=== PATIENT | male | born 1955 | race Caucasian/White ===

== ENCOUNTER 2018-05-08 20:44 | Inpatient (IN) ==
[2018-05-08] MEDS ORDERED: Naloxone 0.4 MG/ML INJ IVP PRN (22:59)
[2018-05-08] MEDS: 0.9 % Sodium Chloride 1,000 ML IVC SCH (23:44)
[2018-05-09 00:43] LABS: Hemoglobin 7.7 g/dL (12.9-16.9)
[2018-05-09 00:45] LABS: Hematocrit 23.2 % (37.5-50.1); Immature Platelets 4.2 % (1.1-6.1); Mean Corpuscular HGB Conc 33.2 g/dL (31.6-35.5); Mean Corpuscular Hemoglobin 32.1 pg (28.0-33.3); Mean Corpuscular Volume 96.7 fL (83.0-100.0); Mean Platelet Volume 11.2 fL (9.4-12.4); Nucleated Red Blood Cells 2.1 /100 WBC (0); Red Cell Distribution Width 15.3 % (11.5-14.5)
[2018-05-09 00:48] LABS: Platelet Count 22 K/mcL (140-400)
[2018-05-09 00:52] LABS: INR 1.7; Prothrombin Time 18.7 Seconds (9.4-12.1)
[2018-05-09 00:55] LABS: Activated Partial Thrombo Time 27.6 Seconds (26.0-36.0)
[2018-05-09 01:01] LABS: Lymphocytes # 0.8 K/mcL (0.6-4.6); Monocytes # 0.4 K/mcL (0.0-1.3); Neutrophils # 1.7 K/mcL (1.6-8.9)
[2018-05-09 01:02] LABS: Anisocytosis 1+ (Not Present); Platelet Estimate Marked Decrease (Normal); Polychromasia 1+ (Not Present); Reactive Lymphocytes Present (Not Present)
[2018-05-09 01:03] LABS: Albumin 2.8 g/dL (3.5-5.7); Albumin/Globulin Ratio 1.2 (1.1-2.2); Bilirubin,Total 2.6 mg/dL (0.3-1.0); Calcium 12.1 mg/dL (8.6-10.3); Globulin 2.4 g/dL (2.4-3.5); Magnesium 2.3 mg/dL (1.6-2.6); Phosphorous 3.7 mg/dL (2.7-4.5); Potassium 3.9 mEq/L (3.5-5.1); Total Protein 5.2 g/dL (6.4-8.9)
--- NOTE | 2018-05-09 02:40 | Internal Med History&Physical ---
Date of Encounter: 05/09/18 Time of Encounter: 02:36 Internal Medicine - H&P: HPI Chief complaint: Weakness History of present illness: Mr. Urena is a 62 year old male with a past medical history of nonischemic cardiomyopathy, COPD, hypertension and ICD who presented from [facility] due to generalized weakness, abdominal pain and 10 pound weight loss. Patient is somewhat of a poor historian due to some confusion however, states that a friend of his recommended that he come into the hospital and be evaluated. Patient states that he has had lower abdominal pain which she describes as a soreness as if he has done "1000 sit ups". Pain is aggravated with twisting and try to get out of bed. Alleviated with rest. Patient also endorses 30 pounds of unintentional weight loss over the past month. Per report from [facility], patient stated it was 10 pounds. When asked if he has been eating and drinking enough he stated, "obviously I have not been eating enough". Patient has a [id number] smoking history and states that he continues to smoke a pack a day. Denies any alcohol use. Adult Protective Services was contacted based on EMS report that patient did not have electricity, running water or a good heat source. During initial assessment at [facility], patient's vitals were stable. Initial laboratory workup was notable for a Leukocyte count was 5.3, hemoglobin of 9.9, platelets of 33, Creatinine of 2.28, Calcium of 13.9. Urine was unremarkable. CT of the chest abdomen and pelvis performed at [facility] demonstrated abnormal findings in the lungs concerning for lung adenocarcinoma with concern for metastatic disease with findings of retroperitoneal lymphadenopathy as well as a lesion involving the liver. Repeat labs here showed significant pancytopenia as well as abnormal LFTs which are also seen at [facility]. Past Med Surg Social Fam HX - Past Medical History Medical history: COPD, hypertension, other Psychiatric history: no psych history - Past Surgical History Surgical History: other, AICD, pacemaker Additional surgical history: partial vocal removal, nephrectomy - Social History Smoking Status: Current every day smoker Packs per day: 1 Smokeless Tobacco Status: No Alcohol use: none Drug use: marijuana - Family History Father Family Member Ethnicity: Non- Living Status: Age at : 46 Hx Family Cancer: Yes (harjit) Internal Medicine - H&P: Meds Aspirin Enteric Coated [Aspirin EC] 81 mg PO DAILY 02/28/17 [History] Atorvastatin [Lipitor] 40 mg PO HS 02/28/17 [History] Carvedilol 18.75 mg PO BID 02/28/17 [History] Cephalexin [Keflex] 500 mg PO TID #15 capsule 02/28/17 [Rx] Furosemide [Lasix] 40 mg PO DAILY 02/28/17 [History] HYDROcodone/Acet 7.5/325 mg [[place] 7.5-325 mg] 1 tab PO Q4-6H PRN #20 tablet 02/28/17 [Rx] Lisinopril [Zestril] 20 mg PO DAILY 02/28/17 [History] Allergy/AdvReac Type Severity Reaction Status Date / Time No Known Allergies Allergy Verified 02/28/17 09:30 All Systems PM: A 10-system review of systems was performed and is negative for pertinent find ings except as documented above in the HPI. - Constitutional Constitutional: no chills, no fever(s), no night sweats - EENT Eyes: no change in vision, no discharge, no pain, no photophobia Ears: no ear discharge, no ear pain, no tinnitus Nose, mouth and throat: no dysphagia, no nasal discharge, no neck pain, no sore throat - Cardiovascular Cardiovascular ROS IM: no chest pain, no diaphoresis, no dyspnea, no lightheadedness, no palpitations, no syncope - Respiratory Respiratory: no cough, no dyspnea, no wheezing, no excessive phlegm production - Gastrointestinal Gastrointestinal: no abdominal pain, no diarrhea, no hematemesis, no hematochezia, no melena, no nausea, no vomiting - Musculoskeletal Musculoskeletal ROS IM: no numbness, no tingling - Integumentary Integumentary IM: no rash, no unusual bruising - Neurological Neurological ROS: no confusion, no convulsions, no focal weakness, no numbness, no tingling, no tremor(s) - Hematologic/Lymphatic Hematologic/Lymphatic: no easy bruising - Constitutional Vitals: Temp Pulse Resp BP Pulse Ox 98.1 F 69 18 96/61 92 05/09/18 02:29 05/09/18 02:29 05/09/18 02:29 05/09/18 02:29 05/09/18 02:29 Exam: General: Alert and oriented 2; lying in bed in no acute distress; cachectic in appearance Skin:Normal color, no rash, no lesions. HEENT:EOM, pupils equal, round and reactive. Dry mucous membranes Cardiovascular:Normal S1 & S2, no rubs, murmurs or gallops. No JVD. Pulse regular. Lungs:Normal breath sounds, diminished at the left lower lung base Abdomen:Soft, non-tender, no rigidity. Extremities:No deformity, no edema or tenderness, no joint swelling or clubbing. Neurological:Normal cognition and motor skills. Pulses:Carotid and radial pulses normal +2. Rest of the physical exam is non contributory Internal Med - H&P Results - Labs CBC & Chem 7: 05/09/18 00:03 05/09/18 00:03 Labs: Short CBC 05/09/18 Range/Units 00:03 WBC 2.9 L (4.3-11.1) K/mcL Hgb 7.7 L (12.9-16.9) g/dL Hct 23.2 L (37.5-50.1) % Plt Count 22 L* (140-400) K/mcL Neutrophils # 1.7 (1.6-8.9) K/mcL BMP 05/09/18 00:03 Sodium 141 Potassium 3.9 Chloride 111 H Carbon Dioxide 23 BUN 89 H Creatinine 1.88 H Glucose 89 Calcium 12.1 H Liver Function 05/09/18 Range/Units 00:03 Total Bilirubin 2.6 H (0.3-1.0) mg/dL AST 164 H (13-39) Units/L ALT 35 (7-52) Units/L Alkaline Phosphatase 305 H (34-104) Units/L Albumin 2.8 L (3.5-5.7) g/dL - Assessment and plan (1) Altered mental status, unspecified Current Visit: Yes Status: Acute Assessment and plan: Patient appears mildly confused. Per nurse, removed his IV line and required transfer from his current room 21 that was closer to the nurse's station. When I assessed the patient he was alert oriented 2 and was unsure where he was. Though, patient was able to tell me later on that he was to be transferred to [place] for further evaluation. Patient has multiple metabolic derangements including hypercalcemia, uremia and abnormal LFTs which may all be contributing to patient's current mental status change. Additionally patient appears dehydrated. -We will continue fluid support -We will obtain ammonia level. -Further workup for possible likely his underlying malignancy with metastatic disease. Qualifiers: Coma depth: unspecified coma depth Qualified Code(s): R40.20 - Unspecified coma (2) Lung mass Current Visit: Yes Status: Acute Assessment and plan: CT scan of the chest without contrast obtained at [facility] shows a left hilar lobulated soft tissue density mass lesion most concerning for lung adenocarcinoma. 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 Adjacent mild layering post left side pleural effusion. Patient currently stable from a respiratory standpoint. -Oncology consult -Consider pulmonary consult (3) Abnormal LFTs Current Visit: Yes Status: Acute Assessment and plan: Patient presents with abnormal LFTs with a total bilirubin of 2.6, alkaline phosphatase of 305, AST of 164, ALT 35. Clinical evidence of jaundice with icteric sclera. CT of the abdomen without contrast shows cystic lesion involving the liver. A suspect metastatic lesion. Lipase level within normal limits. -We will obtain right upper quadrant ultrasound vs MRI of the liver -We will obtain GI consult. (4) Acute kidney injury Current Visit: Yes Status: Acute Assessment and plan: Patient presents with acute kidney injury with a creatinine of 1.88 down from 2.28 obtained at [facility]. Also found to have hypercalcemia with a corrected calcium of 13.1 which is likely further contributing to his dehydration. Appears to have responded to fluids. Patient clinically still appears dry. -Continue fluid support -Monitor kidney function (5) Pancytopenia Current Visit: Yes Status: Acute Assessment and plan: Patient found to be pancytopenic with a white blood cell count of 2.9, hemoglobin of 7.7 and platelet count of 22. Suspect secondary to metastatic disease. No clinical evidence of infection or bleeding at this time. -We will continue to monitor -Oncology consult (6) COPD (chronic obstructive pulmonary disease) Current Visit: Yes Status: Acute Assessment and plan: No evidence of an acute exacerbation. Maintaining good saturations on room air. Supportive care as needed. Qualifiers: Emphysema type: unspecified Qualified Code(s): J43.9 - Emphysema, unspecified (7) Nonischemic cardiomyopathy Current Visit: Yes Status: Acute Assessment and plan: History of nonischemic cardiomyopathy with previous ejection fraction of 30-35% based on records in 2010. No recent echo in our system. Currently does not appear to be volume overloaded. -We will continue with judicious fluid rehydration. (8) DVT prophylaxis Current Visit: Yes Status: Acute Assessment and plan: Subcutaneous heparin - Time Spent With Patient Total time spent is greater than 50% in coordination of care (as documented) at patient's floor/unit and/or counseling patient:
[2018-05-09 04:54] LABS: Hepatitis A Antibody IgM Nonreactive (Nonreactive); Hepatitis B Core IgM Nonreactive (Nonreactive); Hepatitis B Surface Antigen Nonreactive (Nonreactive); Hepatitis C Virus Antibody Nonreactive (Nonreactive)
[2018-05-09] MEDS ORDERED: *HR* Heparin 5,000 UNIT/ML VIAL SQ SCH (06:00)
[2018-05-09 09:10] LABS: Mean Corpuscular Volume 97.7 fL (83.0-100.0)
[2018-05-09 09:12] LABS: Hematocrit 21.5 % (37.5-50.1); Hemoglobin 7.1 g/dL (12.9-16.9); Immature Platelets 3.7 % (1.1-6.1); Mean Corpuscular Hemoglobin 32.3 pg (28.0-33.3); Mean Platelet Volume 11.3 fL (9.4-12.4); Nucleated Red Blood Cells 1.5 /100 WBC (0); Red Cell Distribution Width 15.4 % (11.5-14.5)
--- NOTE | 2018-05-09 09:13 | Gastroenterology Consult Note ---
Date of Encounter: 05/09/18 Time of Encounter: 10:00 - Assessment and plan (1) Abnormal LFTs Current Visit: Yes Status: Acute Assessment and plan: Abnormal LFTs, likely secondary to hepatic mass demonstrated on imaging from [facility]. MELD-Na 22 Patient presented with total bili 2.6, AST 164, LT 35, alkaline phosphatase 305, INR 1.7, Albumin 2.8, Ammonia 52 There does appear to be some level of jaundice on examination One concern for this patient is the possibility of hemolysis, considering elevated LDH Plan Check Peripheral smear for microangiopathic hemolysis, haptoglobin Check CEA, Ca 19-9, AFP Check Hep C RNA PCR for increased sensitivity Recommend biopsy for confirmed diagnosis, however will likely need correction of coagulopathy first. Source of biopsy depends on safest approach. Consider pulmonology consult. (2) Pancytopenia Current Visit: Yes Status: Acute Assessment and plan: Pancytopenia Hemoglobin 7.7, WBC 2.9, platelets 22 Suspect this is secondary to malignancy Hematology and oncology have been consulted (3) Liver mass Current Visit: Yes Status: Acute Assessment and plan: Likely metastatic from the lung (4) Lung mass Current Visit: Yes Status: Acute Assessment and plan: Demonstrated on imaging from [facility] Recommend pulmonology consult for consideration of bronchoscopy if appropriate - Time Spent With Patient Total time spent is greater than 50% in coordination of care (as documented) at patient's floor/unit and/or counseling patient: GI History of Present Illness - Data of Consult Patient: new to practice Consult date: 05/09/18 Requesting Physician: Shahab Esquivel MD - Consult Narrative Reason for consult: Liver lesion with elevated LFTs History of present illness: Mr. Urena is a 62 year old male with history of nonischemic cardiomyopathy, COPD, hypertension who presented from [facility] ED due to concerns for pain, significant weight loss that is unintentional, generalized weakness and overall malaise. The patient apparently has been experiencing worsening health overall for the past couple of months and says that he has been having significant back pain which multiple doctors have been taking a look at. In addition of this, he says that he has had significant shortness of breath, and sometimes abdominal pain as well although he notes for me that it is not that significant. He says that he has seen himself getting thinner and he is not sure why, although he does note that his appetite has been extremely poor. He does not know exactly why he is losing weight, although previous documentation does mention that, per his family, the patient has lost approximately 30 pounds in the past few months. In addition of this, the patient apparently did have significant abdominal pain at the time of arrival, with approximately 10/10 abdominal pain. It should be noted the patient this time is not complaining of any abdominal pain. One major concern for this patient was his state of living however, including the fact that he was apparently found at home with no running water, no electricity and no source of heat. It is unknown how long he was living this way, however, unkn own whether or not he was truly eating or drinking appropriately. At the [facility] ED the patient did have imaging of both his chest and abdomen which demonstrated a mass in the lung as well as retroperitoneal lymphadenopathy and a lesion in the liver all of which together is most concerning for metas tatic lung adenocarcinoma. Significantly, the patient does have a [id number] smoking history and continues to smoke heavily. In addition of these images, the patient was found have a pancytopenia with a WBC 2.9, hemoglobin 7.7, platelets 29. LFTs were found to be marginally elevated at AST 164, LT 35, alkaline phosphatase 305, however his hepatitis panel was largely unremarkable. He was transferred to [facility] for further workup and management, and GI was consulted for worsening LFTs in setting of liver lesion. Past Med Surg Social Fam HX - Past Medical History Medical history: COPD, hypertension, other Psychiatric history: no psych history - Past Surgical History Surgical History: other, AICD, pacemaker Additional surgical history: partial vocal removal, nephrectomy - Social History Smoking Status: Current every day smoker Packs per day: 1 Smokeless Tobacco Status: No Alcohol use: none Drug use: marijuana - Family History Father Family Member Ethnicity: Non- Living Status: Age at : 46 Hx Family Cancer: Yes (melonoma) Review of Systems: Constitutional: Denies fevers, chills. Admits to 30 pounds weight loss, generalized fatigue Head/Neck: Denies NICHOLS, neck stiffness EENT: Denies vision changes/blurriness, rhinorrhea, congestion, sore throat CVS: Denies chest pain, palpitations, orthopnea, edema, PND. Admits to dyspnea on exertion Pulm: Denies sputum, hemoptysis, wheezing. Admits to shortness of breath, cough GI: Denies vomiting, diarrhea, constipation, melena, hematemasis. Admits to occasional abdominal pain, nausea. Admits to poor appetite : Denies dysuria, increased frequency, urgency, hematuria Heme: Denies ease of bleeding or bruising MSK: Denies joint pain, limited ROM Skin: Denies rashes, ulcers, color changes Neuro: Denies NICHOLS, paresthesias, focal deficits, ataxia - Constitutional Vitals: Temp Pulse Resp BP Pulse Ox 98.8 F 83 16 97/61 93 05/09/18 06:55 05/09/18 06:55 05/09/18 06:55 05/09/18 06:55 05/09/18 06:55 Exam: Gen: Vitals noted. Cachectic appearing gentleman Eyes: Minimal scleral icterus, moist conjunctivae; no lid-lag; Pupils equal and reactive to light HENT: Atraumatic; oropharynx clear with moist mucous membranes and no mucosal ulcerations; normal hard and soft palate Neck: Trachea midline; supple, no thyromegaly or lymphadenopathy Cardiac: RRR, no murmur, +S1/S2 Pulmonary: Generally decreased lung mills throughout, however markedly diminished in the right lung mills Abdomen: soft, nontender, no guarding. No masses or hepatosplenomegaly MSK: ROM intact, no joint swelling noted Extremities: no BLE edema, nontender calf, no cyanosis or clubbing Skin: Normal temperature, turgor and texture; no rash, ulcers or subcutaneous nodules Neuro: moves all extremities, no focal deficits. Psych: Appropriate mood and behavior. A&Ox3 Results - Labs CBC & Chem 7: 05/09/18 08:42 05/09/18 08:42 Labs: Last Result Calcium 12.1 mg/dL (8.6-10.3) H 05/09/18 00:03 Entire Visit Hgb 7.7 g/dL (12.9-16.9) L 05/09/18 00:03 Hct 23.2 % (37.5-50.1) L 05/09/18 00:03 PT 18.7 Seconds (9.4-12.1) H 05/09/18 00:03 Total Bilirubin 2.6 mg/dL (0.3-1.0) H 05/09/18 00:03 AST 164 Units/L (13-39) H 05/09/18 00:03 ALT 35 Units/L (7-52) 05/09/18 00:03 Lipase 41 Units/L (11-82) 05/09/18 00:03 - ABG ABG results: PT/INR, D-dimer PT 18.7 Seconds (9.4-12.1) H 05/09/18 00:03 Consult Discharge Plan - Plan Referrals: Reddy Larson DO [Partnered Physician] - 05/18/18 12:00 pm
[2018-05-09 09:17] LABS: Platelet Count 25 K/mcL (140-400)
[2018-05-09 09:35] LABS: Eosinophils # 0.2 K/mcL (0.0-0.6); Lymphocytes # 1.2 K/mcL (0.6-4.6); Monocytes # 0.3 K/mcL (0.0-1.3); Neutrophils # 1.6 K/mcL (1.6-8.9); Platelet Estimate Marked Decrease (Normal)
[2018-05-09 09:36] LABS: Anisocytosis 1+ (Not Present); Polychromasia 1+ (Not Present)
--- NOTE | 2018-05-09 10:17 | Oncology Inp Consult Note ---
Addendum entered and electronically signed by Viet Martinez DO 05/11/18 08:37: I have seen and discussed the plan of care of this patient with attending physician. Original Note: <Viet Martinez - Last Filed: 05/09/18 14:23> Date of Encounter: 05/09/18 Time of Encounter: 10:11 Assessment and Plan (1) Lung mass Status: Acute Assessment and plan: 62M presented to [facility] emergency department with his family to 2 concerns for significant abdominal pain, unintentional weight loss, generalized weakness. CT of the chest, abdomen, pelvis was done at [facility] prior to transfer. 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 There was diffuse retroperitoneal lymphadenopathy, suggesting metastatic disease. There were also small hepatic simple cysts. Patient had elevated LFTs with unremarkable hepatitis serology. concern for metastatic lesions. Differentials include primary lung cancer with mets (suspect squamous cell carcinoma in setting of hypercalcemia) vs. unknown primary with metastasis to the lungs Plan: recommend pulmonology consult for bronchoscopy with biopsy of lung mass. transfuse platelets to increase >50 prior to procedure waiting on final radiology read reports from [facility] (2) Hypercalcemia Status: Acute Assessment and plan: Calcium 12.1 upon admission. Unclear etiology. Differentials include multiple myeloma vs. bony metastatic disease vs. hyperparathyroidism. Plan: one time dose pamidronate ordered-renally adjusted. PTHrP, 1,25 dihydroxy vitamin D, SPEP, UPEP, serum light chains pending continue aggressive fluid hydration-per primary team. (3) Pancytopenia Status: Acute Assessment and plan: infectious source vs. metastatic malignancy. Plan: continue to follow up on blood cultures - Data of Consult Patient: new to practice Consult date: 05/09/18 Requesting Physician: Shahab Esquivel MD Primary Care Provider: PCP NONE - Consult Narrative Reason for consult: concern for metastatic cancer History of present illness: Mr. Jones is a 62 M with past medical history of non-ischemic cardiomyopathy, COPD, hypertension, ICD placement, partial nephrectomy, partial lobectomy, 40 pack per year smoking history, and is still a current smoker. Patient arrived overnight as a transfer from [facility] to chief concern for metastatic lung adenocarcinoma. He initially arrived to [facility] ED via family members with chief complaint of generalized weakness, 10/10 abdominal pain, significant unintentional weight loss over the past month. Patient was altered upon admission, and remains altered. He is not a good historian and review of systems was unobtainable. Past Med Surg Social Fam HX - Past Medical History Medical history: COPD, hypertension, other Psychiatric history: no psych history - Past Surgical History Surgical History: other, AICD, pacemaker Additional surgical history: partial vocal removal, nephrectomy - Social History Smoking Status: Current every day smoker Packs per day: 1 Smokeless Tobacco Status: No Alcohol use: none Drug use: marijuana - Family History Father Family Member Ethnicity: Non- Living Status: Age at : 48 Hx Family Cancer: Yes (melonoma) Medications and Allergies Aspirin Enteric Coated [Aspirin EC] 81 mg PO DAILY 02/28/17 [History] Atorvastatin [Lipitor] 40 mg PO HS 02/28/17 [History] Carvedilol 18.75 mg PO BID 02/28/17 [History] RX: Furosemide [Lasix] 40 mg PO DAILY 02/28/17 [History] RX: Lisinopril [Zestril] 20 mg PO BID 02/28/17 [History] Naproxen 500 mg PO BID PRN 05/09/18 [History] Allergy/AdvReac Type Severity Reaction Status Date / Time No Known Allergies Allergy Verified 02/28/17 09:30 ROS unobtainable: due to mental status Oncology - Exam - Constitutional Exam: General: alert and oriented to place only. Appears agitated, trying to get out of bed. reluctant to answer questions and gets mad when asked simple questions. CV: RRR, no murmurs, rubs, gallops. No edema noted. Respiratory: decreased breath sounds present in all lung mills. Abdomen: soft, non distended, non tender. hypoactive bowel sounds present. Extremities: no cyanosis or edema noted. Consult Discharge Plan - Plan Referrals: Reddy Larson DO [Partnered Physician] - 05/18/18 12:00 pm Inpatient Charges Provider: Dr. Nicole Ricci <Savanah Ricci - Last Filed: 05/09/18 16:14> Date of Encounter: 05/09/18 - Data of Consult Requesting Physician: Shahab Esquivel MD Primary Care Provider: PCP NONE - Attending Attestation I examined this patient and my medical decision-making was reviewed with the resident physician, Juan Llanos. I agree with the documented findings, disposition and treatment plan as described except to the extent set forth below. Inpatient Charges Provider: Dr. Nicole Ricci Consult - Inpatient: [id number]
[2018-05-09 10:30] LABS: Albumin 2.9 g/dL (3.5-5.7); Bilirubin,Total 2.4 mg/dL (0.3-1.0); Calcium 12.2 mg/dL (8.6-10.3); Potassium 3.9 mEq/L (3.5-5.1)
[2018-05-09 10:57] LABS: Albumin/Globulin Ratio 1.3 (1.1-2.2); Globulin 2.2 g/dL (2.4-3.5); Total Protein 5.1 g/dL (6.4-8.9)
[2018-05-09] MEDS: 0.9 % Sodium Chloride 1,000 ML IVC SCH (12:33)
[2018-05-09] MEDS: Piperacillin/Tazobactam 3.375 GM in 0.9 % Sodium Chloride Mini Bag 100 ML IVPB SCH ×2 (13:53→21:07)
[2018-05-09] MEDS ORDERED: Pamidronate 30 MG in 0.9 % Sodium Chloride 500 ML IVPB ONE (14:16)
[2018-05-09] MEDS ORDERED: 0.9 % Sodium Chloride 500 ML IVC ONE (14:45)
--- NOTE | 2018-05-09 15:06 | Internal Med Progress Note ---
Hospitalist Progress Note - Encounter Date of Encounter: 05/09/18 Time of Encounter: 11:40 - Subjective Interval History: H&P reviewed. Patient with history of nonischemic cardiomyopathy status post ICD insertion, COPD, hypertension, tobacco abuse, is admitted for the newly found lung/liver mass, bandemia, acute on chronic kidney failure, transaminitis, and hypercalcemia. Currently alert and oriented x 3 and states that he does want everything done at this point despite educating him on the numerous diagnoses. Continues to complain of mild SOB and generalized weakness. Abdominal pain appears somewhat better. - Exam Vitals: Temp Pulse Resp BP Pulse Ox 97.7 F 76 76 83/50 95 05/09/18 13:29 05/09/18 13:29 05/09/18 13:29 05/09/18 13:29 05/09/18 13:29 Exam: General: Alert and oriented, mild distress. HEENT:EOM, pupils equal, round and reactive. Cardiovascular:Normal S1 & S2, No JVD. Pulse regular. Lungs: Scattered rhonchi worse on the left. No rales/wheezes Abdomen:Soft, non-tender, not distended. No rebound/guarding/rigidity Extremities:No deformity or swelling Neurological: Normal cognition and motor skills. Non-focal. No asterixis - Assessment and Plan (1) Sepsis Current Visit: Yes Status: Acute Assessment and Plan: Presented with leukopenia, bandemia, and hypotension Reviewed CT T/A/P done at [facility] with radiologist at [facility], lung findings can be compatible with post-obstructive or aspiration pneumonia. No discernible amount of ascites or intra-abdominal source of infection start on zosyn PRN fluid boluses, continue mIVF blood cultures ordered sputum cultures, strep/legionella ag (2) Lung mass Current Visit: Yes Status: Acute Assessment and Plan: suspect primary lung CA with liver mets, complicated by post-obstructive PNA abx as above Oncology consult will likely need pulm consult with possible bronch but pt is currently critically ill. Will treat sepsis as above and monitor his progress (3) Hypercalcemia Current Visit: Yes Status: Acute Assessment and Plan: likely due to malignancy, it did improve from 13.9 at [facility] to 12.3 with IVF appreciate oncology input, for 1 dose of pamidronate continue IVF (4) Pancytopenia Current Visit: Yes Status: Acute Assessment and Plan: multifactorial, diffuse liver disease, sepsis, CKD Hb 7.7 -> 7.1, will transfuse 1U pRBC, repeat H&H after, check FOBT Plt 22 -> 25, d/c SQ heparin follow with hematology (5) Pneumonia Current Visit: Yes Status: Acute Assessment and Plan: as above (6) Acute on chronic kidney failure Current Visit: Yes Status: Acute Assessment and Plan: baseline Cr appears to be around 1.2, likely contributed by ATN from sepsis but hepatorenal syndrome is a possibility IVF as above US retroperitoneum will consider nephro consult tomorrow if Cr not improving (7) Abnormal LFTs Current Visit: Yes Status: Acute Assessment and Plan: likely due to liver lesions seen on CT A/P, suspect mets No discernible amount of ascites for paracentesis per discussion with radiologist at [facility] hep panel -ve, denies chronic EtOH use follow with GI (8) Nonischemic cardiomyopathy Current Visit: Yes Status: Acute Assessment and Plan: History of nonischemic cardiomyopathy, no echo in our system. will repeat Echo (9) COPD (chronic obstructive pulmonary disease) Current Visit: Yes Status: Acute Assessment and Plan: No evidence of an acute exacerbation. Maintaining good saturations on room air. Supportive care as needed. (10) DVT prophylaxis Current Visit: Yes Status: Acute Assessment and Plan: EPCD - Time Spent with Patient Total time spent is greater than 50% in coordination of care (as documented) at patient's floor/unit and/or counseling patient: Plan of Care Discussed with: nurse (discused with oncology as well) Internal Medicine: Result - Labs CBC & Chem 7: 05/09/18 08:42 05/09/18 08:42 Labs: Short CBC 05/09/18 05/09/18 Range/Units 00:03 08:42 WBC 2.9 L 3.4 L (4.3-11.1) K/mcL Hgb 7.7 L 7.1 L (12.9-16.9) g/dL Hct 23.2 L 21.5 L (37.5-50.1) % Plt Count 22 L* 25 L* (140-400) K/mcL Neutrophils # 1.7 1.6 (1.6-8.9) K/mcL BMP 05/09/18 05/09/18 00:03 08:42 Sodium 141 141 Potassium 3.9 3.9 Chloride 111 H 112 H Carbon Dioxide 23 23 BUN 89 H 94 H Creatinine 1.88 H 2.01 H Glucose 89 124 H Calcium 12.1 H 12.2 H Liver Function 05/09/18 05/09/18 Range/Units 00:03 08:42 Total Bilirubin 2.6 H 2.4 H (0.3-1.0) mg/dL AST 164 H 177 H (13-39) Units/L ALT 35 36 (7-52) Units/L Alkaline Phosphatase 305 H 340 H (34-104) Units/L Albumin 2.8 L 2.9 L (3.5-5.7) g/dL - ABG Interpretation ABG results: PT/INR, D-dimer PT 18.7 Seconds (9.4-12.1) H 05/09/18 00:03 Consult Discharge Plan - Plan Referrals: Reddy Larson DO [Partnered Physician] - 05/18/18 12:00 pm (1) Sepsis Qualifiers: Sepsis type: sepsis due to unspecified organism Qualified Code(s): A41.9 - Sepsis, unspecified organism (5) Pneumonia Qualifiers: Pneumonia type: due to unspecified organism Laterality: left Lung location: lower lobe of lung Qualified Code(s): J18.1 - Lobar pneumonia, unspecified organism (6) Acute on chronic kidney failure Qualifiers: Acute renal failure type: unspecified Chronic kidney disease stage: stage 3 (moderate) Qualified Code(s): N17.9 - Acute kidney failure, unspecified; N18.3 - Chronic kidney disease, stage 3 (moderate) (9) COPD (chronic obstructive pulmonary disease) Qualifiers: Emphysema type: unspecified Qualified Code(s): J43.9 - Emphysema, unspecified
[2018-05-09] MEDS: Ringers Solution, Lactated 1,000 ML IVC SCH (18:22)
[2018-05-09 21:57] LABS: Hematocrit 19.4 % (37.5-50.1); Hemoglobin 6.4 g/dL (12.9-16.9)
[2018-05-10] MEDS: Ringers Solution, Lactated 1,000 ML IVC SCH (04:11)
[2018-05-10] MEDS: Piperacillin/Tazobactam 3.375 GM in 0.9 % Sodium Chloride Mini Bag 100 ML IVPB SCH (05:03)
[2018-05-10] MEDS ORDERED: Aspirin Enteric Coated 81 MG Tablet PO SCH (09:00)
[2018-05-10 09:34] LABS: Hematocrit 21.3 % (37.5-50.1); Hemoglobin 6.6 g/dL (12.9-16.9)
[2018-05-10 09:47] LABS: Albumin 2.7 g/dL (3.5-5.7); Albumin/Globulin Ratio 1.2 (1.1-2.2); Globulin 2.3 g/dL (2.4-3.5)
--- NOTE | 2018-05-10 09:48 | Oncology Inp Progress Note ---
<Viet Martinez - Last Filed: 05/10/18 10:06> Date of Encounter: 05/10/18 Time of Encounter: 09:48 (1) Lung mass Current Visit: Yes Status: Acute Assessment and plan: 62M presented to [facility] emergency department with his family to 2 concerns for significant abdominal pain, unintentional weight loss, generalized weakness. CT of the chest, abdomen, pelvis was done at [facility] prior to transfer. 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 There was diffuse retroperitoneal lymphadenopathy, suggesting metastatic disease. There were also small hepatic simple cysts. Patient had elevated LFTs with unremarkable hepatitis serology. concern for metastatic lesions. Differentials include primary lung cancer with mets (suspect squamous cell carcinoma in setting of hypercalcemia) vs. unknown primary with metastasis to the lungs Plan: recommend pulmonology consult for bronchoscopy with biopsy of lung mass. transfuse platelets to increase >50 prior to procedure, transfuse PRBCs PRN Bone scan pending at this time, this patient is not a candidate for chemotherapy. If he does receive any treatment, it will be palliative and not curative. Due to his current condition, it will be very unlikely that patient will tolerate aggressive interventions. No family present at bedside today, and patient does not have power of [place] attorney and remains altered. If family does wish to keep patient full code and continue with all interventions, the next step would be bone biopsy, after bone scan completed. We will wait on bone biopsy until their further discussions with family members. We appreciate the help of palliative care team. (2) Hypercalcemia Current Visit: Yes Status: Acute Assessment and plan: Calcium 12.1 upon admission. Unclear etiology. Differentials include multiple myeloma vs. bony metastatic disease vs. hyperparathyroidism. Plan: s/p infusion of pamdronate. PTHrP, 1,25 dihydroxy vitamin D, SPEP, UPEP, serum light chains pending (3) Pancytopenia Current Visit: Yes Status: Acute Assessment and plan: infectious source vs. metastatic malignancy. Oncology: Subj Interval history: 62M evaluated at bedside. he is alert and oriented to person only and is not aware of what is going on around him. - Constitutional Exam: General: alert and oriented to person only. appears to be in respiratory d istress. Respiratory: decreased breath sounds in all lung mills. rales noted in right upper lobe. CV: tacycardia. S1, S2 noted. no murmurs, rubs, gallops Abdomen: soft, non distended. diffuse abdominal tenderness to palpation. hypoactive bowel sounds. Extremities: no cyanosis or edema present. Oncology: Obj Data - Labs CBC & Chem 7: 05/10/18 09:08 05/10/18 09:08 Consult Discharge Plan - Plan Instructions: Chronic Obstructive Pulmonary Disease (DC), Sepsis (DC) Referrals: Reddy Larson DO [Partnered Physician] - 05/18/18 12:00 pm <Savanah Ricci - Last Filed: 05/10/18 16:56> Date of Encounter: 05/10/18 Oncology: Subj Interval history: Patient is tachypneic serum calcium still elevated abnormal CBC renal insufficiency, left hilar mass, possible liver lesion and bone lesion suggestive off metastatic malignancy. He is currently made a DNR CC after discussion with family, patient's sister about his overall prognosis. I examined this patient and my medical decision-making was reviewed with resident physician Dr Viet Martinez. I agree with the documented findings, disposition and treatment plan as described except to the extent set forth below. Oncology: Obj Data - Labs CBC & Chem 7: 05/10/18 09:08 05/10/18 09:08 Inpatient Charges Provider: Dr. Nicole Ricci Follow up - Inpatient: [id number]
--- NOTE | 2018-05-10 10:32 | Palliative - Consult Note ---
Date of Encounter: 05/10/18 Time of Encounter: 10:30 - Assessment and Plan (1) Goals of care, counseling/discussion Current Visit: Yes Status: Acute Assessment and plan: Patient's sister and brother n law did arrive from [facility]. They have had full discussion with hospitalist and are aware of diagnosis and clinical st atus. They stated that they would like patient transitioned to DNRCC and kept comfortable, would also like to enroll in hospice care. Sister states how much decline patient has had since she saw him Monday, and does not think he will survive hospital stay, which I agree. He is restless and c/o back pain. He will be discharged and transitioned to general inpatient hospice care for symptom management. If he survives, he will need ECF placement as there is no family able to care for him. (2) Altered mental status, unspecified Current Visit: Yes Status: Acute Qualifiers: Coma depth: unspecified coma depth Qualified Code(s): R40.20 - Unspecified coma (3) Pancytopenia Current Visit: Yes Status: Acute (4) Nonischemic cardiomyopathy Current Visit: Yes Status: Acute (5) Lung mass Current Visit: Yes Status: Acute Palliative-CN HPI - Data of Consult Consult date: 05/10/18 Requesting Physician: Shahab Esquivel MD Primary Care Provider: PCP NONE - Consult Narrative History of present illness: Mr. Urena is a 62 year old male with a past medical history of nonischemic cardiomyopathy, COPD, hypertension and ICD who presented from [facility] due to generalized weakness, abdominal pain and 10 pound weight loss. Patient has altered mental status and can only provide his name and location to me during my visit, and there is no family at bedside, so information taken from chart review and staff. Patient apparently was urged by friend to come to ED. He is from [facility] and presented to [facility] - CT performed there demonstrated concern for lung cancer with concern for metastatic disease with liver involvement and retroperitoneal lymphadenopathy. He has different reports of between 10-30 lbs weight loss over the past month. History of tobacco abuse. Adult Protective Services was contacted based on EMS report that patient did not have electricity, running water or a good heat source. Labwork has been abnormal with Hgb 6.4 today, plat 25, elevated liver enzymes and elevated BUN/CR. Staff was able to reach his sister this am, and she is on her way here from the [facility]. Upon my visit, patient appears thin and dishelved. Dental caries noted. He is sleeping with slightly irreg respirations with some periods of apnea. Awakens with light touch and name calling - is able to whisper his name to me and know he is at hospital. Could follow few simple commands. Unable to answer most other questions. No family at bedside. CC: Shahab Esquivel MD - Time Spent with Patient Time: Total time spent is greater than 50% in coordination of care (as documented) at patient's floor/unit and/or counseling patient: Past Med Surg Social Fam HX - Past Medical History Medical history: COPD, hypertension, other Psychiatric history: no psych history - Past Surgical History Surgical History: other, AICD, pacemaker Additional surgical history: partial vocal removal, nephrectomy - Social History Smoking Status: Current every day smoker Packs per day: 1 Smokeless Tobacco Status: No Alcohol use: none Drug use: marijuana - Family History Father Family Member Ethnicity: Non- Living Status: Age at : 48 Hx Family Cancer: Yes (melonoma) Medications and Allergies FentaNYL (PF) 50 mcg IVP Q3H PRN vial 05/10/18 [Rx] LORazepam [Ativan] 1 mg IVP Q2HR PRN vial 05/10/18 [Rx] OXYCODONE Oral CONC [Oxycodone Oral Conc] 10 mg SL Q3H PRN oral.syg 05/10/18 [Rx] Allergy/AdvReac Type Severity Reaction Status Date / Time No Known Allergies Allergy Verified 02/28/17 09:30 ROS unobtainable: due to mental status Palliative Care-Exam - Constitutional Vitals: Temp Pulse Resp BP Pulse Ox 98.3 F 110 20 100/58 88 05/10/18 08:09 05/10/18 08:09 05/10/18 08:09 05/10/18 08:09 05/10/18 08:09 General appearance: Present: disheveled, mild distress, thin - Head Head Exam: Present: normal inspection, normocephalic - Expanded ENT Exam Teeth exam: Present: dental caries - Respiratory Respiratory exam: Present: decreased breath sounds Additional comments: Respiratory irreg with 5-10 second periods of apnea. - Cardiovascular Cardiovascular exam: Present: irregular rhythm - GI/Abdominal Exam GI/Abdominal exam: Present: diminished bowel sounds, distended - Extremities Exam Extremities exam: Present: normal capillary refill, normal inspection - Neurological Exam Additional comments: Patient awakens and oriented to name and place only. Drifts back to sleep duri ng conversation. Follow simple one step commands while awake - Skin Skin exam: Present: dry, pallor, warm Internal Medicine - CN: Reslt - Labs CBC & Chem 7: 05/10/18 09:08 05/10/18 09:08 Labs: Short CBC 05/09/18 05/10/18 Range/Units 21:46 09:08 Hgb 6.4 L 6.6 L (12.9-16.9) g/dL Hct 19.4 L 21.3 L (37.5-50.1) % BMP 05/09/18 05/10/18 08:42 09:08 Sodium 141 150 H Potassium 3.9 4.0 Chloride 112 H 121 H Carbon Dioxide 23 15 L BUN 94 H 86 H Creatinine 2.01 H 2.02 H Glucose 124 H 97 Calcium 12.2 H 12.0 H Liver Function 05/09/18 05/10/18 Range/Units 08:42 09:08 Total Bilirubin 2.4 H 3.0 H (0.3-1.0) mg/dL AST 177 H 183 H (13-39) Units/L ALT 36 35 (7-52) Units/L Alkaline Phosphatase 340 H 342 H (34-104) Units/L Albumin 2.9 L 2.7 L (3.5-5.7) g/dL - ABG Interpretation ABG results: PT/INR, D-dimer PT 18.7 Seconds (9.4-12.1) H 05/09/18 00:03 - Impressions Impressions Abdomen Ultrasound 05/09/18 17:00 IMPRESSION: 1. Small simple cyst in the liver without biliary ductal dilation. 2. Gallbladder sludge without cholelithiasis. There is pericholecystic fluid but there is no sonographic Stockton's sign. 3. No ascites. D/ / Manuel Spears MD / Manuel Spears MD Interpreting Provider: Manuel Spears MD Retroperitoneum Ultrasound 05/09/18 17:30 IMPRESSION: Status post left nephrectomy. There is hyperechogenicity of the renal cortex on the right, suggesting medical renal disease. D/ / Jaime Salinas MD / Jaime Salinas MD Interpreting Provider: Jaime Salinas MD Consult Discharge Plan - Plan Instructions: Chronic Obstructive Pulmonary Disease (DC), Sepsis (DC) Referrals: Reddy Larson, [Partnered Physician] - 05/18/18 12:00 pm Palliative Quality Palliative Quality: Screen for Code Status: NA (awaiting next of kin), Screen for Goals of Care: NA, Screen for Pain: Yes, If Pain Regimen Started, Initiate Bowel Regimen: NA, Screen for Nausea/Vomitting: Yes Code Status: 05/08/18 22:59 Resuscitation Status: Active [RES] Routine Comment: Resuscitation Status: Full Code Palliative Scale - Palliative Performance Scale How ambulatory is this patient?: Mainly in bed What is patient's level of activity and evidence of disease?: Unable to do most activity, Extensive disease How much self-care assistance does patient require?: Mainly assistance How much oral intake does the patient have?: Minimal to sips What is this patient's level of consciousness?: Full or drowsy with or without confusion Palliative Performance Score: 20 %
--- NOTE | 2018-05-10 11:57 | Internal Med Progress Note ---
Hospitalist Progress Note - Encounter Date of Encounter: 05/10/18 Time of Encounter: 09:15 - Subjective Interval History: Patient is no longer oriented x 3. No fever overnight and remains borderline hemodynamically. Spoke to patient's sister at length and explained the diagnosis and prognosis in detail. H&H remains at 6.6. - Exam Vitals: Temp Pulse Resp BP Pulse Ox 98.3 F 99 24 89/49 94 05/10/18 11:26 05/10/18 11:26 05/10/18 11:26 05/10/18 11:26 05/10/18 11:26 Exam: General: drowsy, not in distress Cardiovascular:Normal S1 & S2, No JVD. Pulse regular. Lungs: Scattered rhonchi worse on the left. No rales/wheezes Abdomen:Soft, non-tender, not distended. No rebound/guarding/rigidity Extremities:No deformity or swelling Neurological: grossly non-focal - Assessment and Plan (1) Sepsis Current Visit: Yes Status: Acute Assessment and Plan: Presented with leukopenia, bandemia, and hypotension Reviewed CT T/A/P done at [facility] with radiologist at [facility], lung findings can be compatible with post-obstructive or aspiration pneumonia. No discernible amount of ascites or intra-abdominal source of infection start on zosyn, D2 follow up on blood cultures sputum cultures, strep/legionella ag pending poor prognosis due to the below (2) Lung mass Current Visit: Yes Status: Acute Assessment and Plan: suspect primary lung CA with liver mets, complicated by post-obstructive PNA abx as above Oncology input appreciated will likely need pulm consult with possible bronch but pt is currently critically ill. Will treat sepsis as above and monitor his progress discussed at length with pt's sister, [facility] (3) Hypercalcemia Current Visit: Yes Status: Acute Assessment and Plan: likely due to malignancy, it did improve from 13.9 at [facility] to 12.3 with IVF appreciate oncology input, received 1 dose of pamidronate. 12 today continue IVF may transition to hospice soon (4) Pancytopenia Current Visit: Yes Status: Acute Assessment and Plan: multifactorial, diffuse liver disease, sepsis, CKD supportive measure follow with hematology (5) Pneumonia Current Visit: Yes Status: Acute Assessment and Plan: as above (6) Acute on chronic kidney failure Current Visit: Yes Status: Acute Assessment and Plan: baseline Cr appears to be around 1.2, likely contributed by ATN from sepsis but hepatorenal syndrome is a possibility IVF US retroperitoneum did not show any evidence of obstructive uropathy poor prognosis (7) Abnormal LFTs Current Visit: Yes Status: Acute Assessment and Plan: likely due to liver lesions seen on CT A/P, suspect mets No discernible amount of ascites for paracentesis per discussion with radiologist at [facility]. US verified it yesterday hep panel -ve, denies chronic EtOH use follow with GI (8) Nonischemic cardiomyopathy Current Visit: Yes Status: Acute Assessment and Plan: History of nonischemic cardiomyopathy, no echo in our system. appears that patient had refused Echo overnight, will hold off till GOC status is clearly delineated (9) DVT prophylaxis Current Visit: Yes Status: Acute Assessment and Plan: EPCD - Time Spent with Patient Total time spent is greater than 50% in coordination of care (as documented) at patient's floor/unit and/or counseling patient: Plan of Care Discussed with: family (discussed with palliative care as well) Internal Medicine: Result - Labs CBC & Chem 7: 05/10/18 09:08 05/10/18 09:08 Labs: Short CBC 05/09/18 05/10/18 Range/Units 21:46 09:08 Hgb 6.4 L 6.6 L (12.9-16.9) g/dL Hct 19.4 L 21.3 L (37.5-50.1) % BMP 05/10/18 09:08 Sodium 150 H Potassium 4.0 Chloride 121 H Carbon Dioxide 15 L BUN 86 H Creatinine 2.02 H Glucose 97 Calcium 12.0 H Liver Function 05/10/18 Range/Units 09:08 Total Bilirubin 3.0 H (0.3-1.0) mg/dL AST 183 H (13-39) Units/L ALT 35 (7-52) Units/L Alkaline Phosphatase 342 H (34-104) Units/L Albumin 2.7 L (3.5-5.7) g/dL - ABG Interpretation ABG results: PT/INR, D-dimer PT 18.7 Seconds (9.4-12.1) H 05/09/18 00:03 - Impressions Impressions Abdomen Ultrasound 05/09/18 17:00 IMPRESSION: 1. Small simple cyst in the liver without biliary ductal dilation. 2. Gallbladder sludge without cholelithiasis. There is pericholecystic fluid but there is no sonographic Stockton's sign. 3. No ascites. D/ / Manuel Spears MD / Manuel Spears MD Interpreting Provider: Manuel Spears MD Retroperitoneum Ultrasound 05/09/18 17:30 IMPRESSION: Status post left nephrectomy. There is hyperechogenicity of the renal cortex on the right, suggesting medical renal disease. D/ / Jaime Salinas MD / Jaime Salinas MD Interpreting Provider: Jaime Salinas MD Consult Discharge Plan - Plan Referrals: Reddy Larson DO [Partnered Physician] - 05/18/18 12:00 pm (1) Sepsis Qualifiers: Sepsis type: sepsis due to unspecified organism Qualified Code(s): A41.9 - Sepsis, unspecified organism (5) Pneumonia Qualifiers: Pneumonia type: due to unspecified organism Laterality: left Lung location: lower lobe of lung Qualified Code(s): J18.1 - Lobar pneumonia, unspecified organism (6) Acute on chronic kidney failure Qualifiers: Acute renal failure type: unspecified Chronic kidney disease stage: stage 3 (moderate) Qualified Code(s): N17.9 - Acute kidney failure, unspecified; N18.3 - Chronic kidney disease, stage 3 (moderate)
[2018-05-10] MEDS ORDERED: *HR* FentaNYL (PF) 100 MCG/2 ML VIAL IVP PRN (12:20)
[2018-05-10] MEDS ORDERED: OXYCODONE Oral CONC 10 MG/0.5 ML ORAL.SYG SL PRN (12:20)
[2018-05-10] MEDS ORDERED: *HR* LORazepam 2 MG/ML VIAL IVP PRN (12:21)
--- NOTE | 2018-05-10 12:34 | Discharge Summary ---
- NOTES TO OUTPATIENT PROVIDER Notes to Outpatient Provider: Patient with history of nonischemic cardiomyopathy, COPD was admitted for generalized weakness and was found to be in sepsis from post-obstructive pneumonia, newly diagnosed lung/liver mass, pancytopenia, and acute on chronic kidney failure. Empirically treated with IV abx and IVF without improvement. Discussed with family at length and it was decided that they would pursue comfort care. Transitioned to inpatient hospice. Orders not resulted at time of discharge: Pending orders 05/09/18 08:42 Culture,Blood [BC] Stat 05/09/18 14:49 Lena Lambda Qnt FLC w Ratio Routine Parathormone Related Peptide Routine Protein Electrophoresis Routine Vitamin D 1,25 Dihydroxy Routine 05/09/18 15:12 Culture,Sputum with Gram Stain [RM] Routine Legionella Antigen [RM] Routine S. Pneumoniae Antigen [RM] Routine 05/10/18 04:42 AFP Tumor Marker Non- AM 0400 Cancer Antigen-GI (CA 19-9) AM 0400 Haptoglobin AM 0400 Hepatitis C Virus Quant AM 0400 05/10/18 10:05 NM bone scan whole body [NM] Routine Date of Encounter: 05/10/18 Time of Encounter: 09:15 - Discharge Diagnosis (1) Sepsis Priority: Primary Status: Acute Qualifiers: Sepsis type: sepsis due to unspecified organism Qualified Code(s): A41.9 - Sepsis, unspecified organism (2) Lung mass Priority: Secondary Status: Acute (3) Hypercalcemia Priority: Secondary Status: Acute (4) Pancytopenia Priority: Secondary Status: Acute (5) Pneumonia Priority: Secondary Status: Acute Qualifiers: Pneumonia type: due to unspecified organism Laterality: left Lung location: lower lobe of lung Qualified Code(s): J18.1 - Lobar pneumonia, unspecified organism (6) Acute on chronic kidney failure Priority: Secondary Status: Acute Qualifiers: Acute renal failure type: unspecified Chronic kidney disease stage: stage 3 (moderate) Qualified Code(s): N17.9 - Acute kidney failure, unspecified; N18.3 - Chronic kidney disease, stage 3 (moderate) (7) Abnormal LFTs Priority: Secondary Status: Acute (8) Nonischemic cardiomyopathy Priority: Secondary Status: Acute (9) DVT prophylaxis Priority: Secondary Status: Acute (10) Metabolic encephalopathy Priority: Secondary Status: Acute Hospital course: Mr. Urena is a 62 year old male with history of nonischemic cardiomyopathy s/p ICD, COPD was admitted for generalized weakness and was found to be in sepsis from post-obstructive pneumonia, newly diagnosed lung/liver mass, pancytopenia, and acute on chronic kidney failure. Empirically treated with IV abx and IVF without improvement. Discussed with family at length and it was decided that they would pursue comfort care. Transitioned to inpatient hospice. Discharge discussed with: family, nurse, senior internet sales consultant - Time Spent with Patient Total time spent providing and/or coordinating discharge services: 36 mins - Discharge Medications Home Medications: RX: FentaNYL (PF) 50 mcg IVP Q3H PRN vial 05/10/18 [Rx] RX: LORazepam [Ativan] 1 mg IVP Q2HR PRN vial 05/10/18 [Rx] RX: OXYCODONE Oral CONC [Oxycodone Oral Conc] 10 mg SL Q3H PRN oral.syg 05/10/18 [Rx] Allergies/Adverse Reactions: Allergy/AdvReac Type Severity Reaction Status Date / Time No Known Allergies Allergy Verified 02/28/17 09:30 Date of admission: 05/08/18 22:54 Primary care physician: PCP NONE Consults: 05/08/18 23:02 Consult to Cardiac Exercise Specialist [CONS] Routine Reason for SW Consult: Patient is a transfer from [facility]. Per report adult protective services are involved due to poor conditions at the patient's home. 05/08/18 23:08 Consult to Oncology [CONS] Routine Consulting Provider: [facility] Reason for Consult: Patient presenting with generalized weakness and 10 pound weight loss [address] chest abdomen and pelvis showing lesions concerning for malignancy/metastatic disease Call Completed: No 05/08/18 23:32 Consult to Nutrition [CONS] Routine Comment: Consulting Provider: NUTRITION Reason for Dietary Consult: MST Score Consult to Pastoral Services [CONS] Routine Comment: orthodoxy 05/09/18 02:41 Consult to Gastroenterology [CONS] Routine Consulting Provider: Gastroenter[facility] [place] Reason for Consult: Abnormal LFTs. Concern for metastatic lesion involving the liver. Call Completed: No 05/10/18 09:44 Consult to Palliative Care [CONS] Stat Comment: Consulting Provider: Palliative Care [facility] Reason for Consult: lung cancer with mets. no poA. not candidate for chemo. if he desires treatment it will likely be palliative. need goals of care discussion Call Completed: Yes 05/10/18 12:14 Consult to Cardiology [CONS] Routine Comment: Consulting Provider: Cardiology [facility] Reason for Consult: deactivation of aicd, pt terminal cancer appears imminent Time Notified: 12:15 Call Completed: Yes - Constitutional Vitals: Temp Pulse Resp BP Pulse Ox 98.3 F 99 24 89/49 94 05/10/18 11:26 05/10/18 11:26 05/10/18 11:26 05/10/18 11:26 05/10/18 11:26 Exam: General: drowsy, not in distress Cardiovascular:Normal S1 & S2, No JVD. Pulse regular. Lungs: Scattered rhonchi worse on the left. No rales/wheezes Abdomen:Soft, non-tender, not distended. No rebound/guarding/rigidity Extremities:No deformity or swelling Neurological: grossly non-focal - Patient Status Disposition: Hospice - Medical Facility Condition: Serious - Discharge Instructions Instructions: Sepsis (DC) Follow Up With: Reddy Larson DO [Partnered Physician] - 05/18/18 12:00 pm - Diet and Activity Activity: other Diet: other
--- NOTE | 2018-05-10 12:41 | Physician Discharge Referral ---
Home Health/Hosp Referral Info Transfer to: Hospice - Diagnosis (1) Sepsis Priority: Primary Status: Acute (2) Lung mass Priority: Secondary Status: Acute (3) Hypercalcemia Priority: Secondary Status: Acute (4) Pancytopenia Priority: Secondary Status: Acute (5) Pneumonia Priority: Secondary Status: Acute (6) Acute on chronic kidney failure Priority: Secondary Status: Acute (7) Abnormal LFTs Priority: Secondary Status: Acute (8) Nonischemic cardiomyopathy Priority: Secondary Status: Acute (9) DVT prophylaxis Priority: Secondary Status: Acute (10) Metabolic encephalopathy Priority: Secondary Status: Acute - Respiratory Orders Smoking Cessation: Smoking cessation has been advised. For more information, call the [employer] Tobacco Quit Line at 6-646-UJORNOW. Other Treatments: per palliative care - Transfer Medications Home Medications: FentaNYL (PF) 50 mcg IVP Q3H PRN vial 05/10/18 [Rx] LORazepam [Ativan] 1 mg IVP Q2HR PRN vial 05/10/18 [Rx] OXYCODONE Oral CONC [Oxycodone Oral Conc] 10 mg SL Q3H PRN oral.syg 05/10/18 [Rx] Allergies/Adverse Reactions: Allergy/AdvReac Type Severity Reaction Status Date / Time No Known Allergies Allergy Verified 02/28/17 09:30 Certification: Further, I certify that my clinical findings support that this patient is homebound (i.e. absences from home require considerable and taxing effort and are for medical reasons or congregational services or infrequently or short duration when for other reasons) because: Homebound Reason: Altered mental status requiring supervision when leaving home, Severity of cardiac or pulmonary status limits activity tolerance Attestation: My signature below is to certify that this patient is under my care and that I, or nurse practitioner, or a physician's assistant golf coach working with me, has a [id number] encounter with this patient.
--- NOTE | 2018-05-10 13:34 | Event Note ---
Date of Encounter: 05/10/18 Time of Encounter: 13:31 - Cardiology Event Note Per palliative care, consulted for ICD deactivation. No family at bedside. Chart reviewed. Terminal cancer, inpt hospice, code status DNRCC. Pt's ICD is [employer]. Contacted device rep, Norbert. He will be in this afternoon to turn off tachy therapies on pt's ICD. Currently a magnet is taped on. Will sign off once device is deactivated. Please reconsult PRN.
[2018-05-10 13:45] VITALS: BP 90/54
[2018-05-12 04:23] LABS: Kappa Qnt Free Light Chains 3.21 mg/dL (0.33-1.94); Lambda Qnt Free Light Chains 3.5 mg/dL (0.57-2.63)
[2018-05-12 14:23] LABS: AFP Tumor Marker Non-Pregnant 4 ng/mL (0-9); Cancer Antigen-GI (CA 19-9) 561 U/mL (0-37)
[2018-05-13 04:06] LABS: Alpha 2 Globulin (PEP) 0.44 g/dL (0.48-1.05); Beta Globulin (PEP) 0.73 g/dL (0.48-1.10)
[2018-05-13 14:17] LABS: HCV Quant Log NOT DETECTED log IU/mL
[2018-05-14 10:26] LABS: IFE Reflexed NOT DONE
[2018-05-14 10:34] LABS: HCV Quant Interpretation NOT DETECTED (Not Detected)
== END 2018-05-10 17:12 | disposition hospice, inpatient (51) | DRG 720 ==
LOC: SUATTDRO 22:54 → 3ANU 22:54 → 2NNU 05-09 13:21
PROVIDERS: ADMIT Internal Medicine; ATTEND Internal Medicine

== ENCOUNTER 2018-05-10 12:16 | Inpatient (IN) ==
[2018-05-10] MEDS ORDERED: Haloperidol Lactate 5 MG/ML VIAL IVP PRN (13:28)
[2018-05-10] MEDS ORDERED: Bisacodyl 10 MG RECTAL SUPPOSITORY RC PRN (13:28)
[2018-05-10] MEDS ORDERED: Atropine Sulfate 1% 40 DROP/2 ML BOTTLE SL PRN (13:28)
[2018-05-10] MEDS ORDERED: OXYCODONE Oral CONC 10 MG/0.5 ML ORAL.SYG SL PRN (13:30)
[2018-05-10] MEDS ORDERED: *HR* FentaNYL (PF) 100 MCG/2 ML VIAL IVP PRN (13:31)
--- NOTE | 2018-05-10 13:42 | Pallative History & Physical ---
Date of Encounter: 05/10/18 Time of Encounter: 13:00 Assessment and Plan (1) Cancer associated pain Status: Acute Will begin Oxycodone SL for pain management, if this is ineffective, will have Fentanyl IV available. MOnitor and titrate as needed. (2) Anxiety Status: Acute Will begin Lorazepam and titrate for comfort. (3) Agitation Status: Acute Will have low hose Haloperidol if needed. (4) Goals of care, counseling/discussion Status: Acute Admit to general inpatient hospice today for intense symptom management. His condition is very poor, and he may possibly not survive this inpatient stay. Discussed at length with pt sister, Akua Nance, who is his closest next of kin. Patient also does have a brother, but he resides in [place], but Akua has informed him of patient's dire condition, and he is in agreement for comfort care. Will follow and titrate medications as needed. If he survives hospital stay, he will likely need ECF placement. (5) Acute kidney injury Status: Acute (6) COPD (chronic obstructive pulmonary disease) Status: Acute Qualifiers: Emphysema type: unspecified Qualified Code(s): J43.9 - Emphysema, unspecified (7) Metabolic encephalopathy Status: Acute (8) Nonischemic cardiomyopathy Status: Acute AICD will be deactivated by [facility] today. (9) Metastatic disease Status: Acute Internal Medicine - H&P: HPI Admitted From: Intrahospital Transfer History of present illness: Mr. Urena is a 62 year old male with a past medical history of nonischemic cardiomyopathy, COPD, hypertension and ICD who presented from [facility] due to generalized weakness, abdominal pain and 10 pound weight loss. Patient has altered mental status and can only provide his name and location to me during my visit, and there is no family at bedside, so information taken from chart review and staff. Patient apparently was urged by friend to come to ED. He is from [facility] and presented to [facility] - CT performed there demonstrated large lt hilar mass - lung cancer with concern for metastatic disease with liver involvement and retroperitoneal lymphadenopathy. He has different reports of between 10-30 lbs weight loss over the past month. History of tobacco abuse. Adult Protective Services was contacted based on EMS report that patient did not have electricity, running water or a good heat source. Labwork has been abnormal with Hgb 6.4 today, plat 25, elevated liver enzymes and elevated BUN/CR. Staff was able to reach his sister this am, I met with her a short time ago. She describes patient decline over the last few months, but describes him as a "recluse" who doesn't like family involved in his affairs. States they did see him on Thanksgiving, and she was surprised by his frailty and weight loss. They did get him to make appt with provider and had CT scan scheduled for this week, but condition deteriorated the beginning of this week which led to hospital stay. Goals of care discussed with sister, and she desired comfort care only. States that patient would not want aggressive testing or life prolonging measures, and they know he is not candidate for chemotherapy at this time. He is c/o severe back pain, very restless with some agitation. Will transition to inpatient hospice care for symptom management. He may not survive hospital stay, and family is aware. Upon my visit, patient appears thin and dishelved. Dental caries noted. He is sleeping with slightly irreg respirations with some periods of apnea. Awakens with light touch and name calling - is able to whisper his name to me and know he is at hospital. Could follow few simple commands. Unable to answer most other questions. Past Med Surg Social Fam HX - Past Medical History Medical history: COPD, hypertension, other Psychiatric history: no psych history - Past Surgical History Surgical History: other, AICD, pacemaker Additional surgical history: partial vocal removal, nephrectomy - Social History Smoking Status: Current every day smoker Smokeless Tobacco Status: No Alcohol use: none Drug use: marijuana - Family History Father Family Member Ethnicity: Non- Living Status: Hx Family Cancer: Yes (harjit) Internal Medicine - H&P: Meds FentaNYL (PF) 50 mcg IVP Q3H PRN vial 05/10/18 [Rx] LORazepam [Ativan] 1 mg IVP Q2HR PRN vial 05/10/18 [Rx] OXYCODONE Oral CONC [Oxycodone Oral Conc] 10 mg SL Q3H PRN oral.syg 05/10/18 [Rx] Allergy/AdvReac Type Severity Reaction Status Date / Time No Known Allergies Allergy Verified 02/28/17 09:30 ROS unobtainable: due to mental status Palliative Care-Exam - Constitutional General appearance: Present: disheveled, mild distress, thin - Head Head Exam: Present: normal inspection, normocephalic - Eye Eye exam: Present: normal appearance, PERRL - Expanded ENT Exam Teeth exam: Present: dental caries - Respiratory Respiratory exam: Present: decreased breath sounds Additional comments: Faint expiratory wheezes posterior lung mills - Cardiovascular Cardiovascular exam: Present: +S1, +S2 - GI/Abdominal Exam GI/Abdominal exam: Present: diminished bowel sounds, distended, soft - Extremities Exam Extremities exam: Present: normal capillary refill, normal inspection - Neurological Exam Neurological exam: Present: alert, strengths equal and symetr throughout Additional comments: Oriented to name and place only. ANDRADE. Follows simple commands - Skin Skin exam: Present: dry, pallor, warm Palliative Quality Palliative Quality: Screen for Code Status: Yes, Screen for Goals of Care: Yes, Screen for Pain: Yes, If Pain Regimen Started, Initiate Bowel Regimen: Yes, Screen for Nausea/Vomitting: Yes Code Status: 05/10/18 13:28 Resuscitation Status: Active [RES] Routine Comment: Resuscitation Status: DNR-Comfort Care
[2018-05-11] MEDS: *HR* LORazepam 2 MG/ML VIAL IVP PRN ×3 (07:49→23:14)
--- NOTE | 2018-05-11 09:15 | Palliative Progress Note ---
Date of Encounter: 05/11/18 Time of Encounter: 08:45 - Assessment and plan (1) Altered mental status, unspecified Current Visit: No Status: Acute Assessment and plan: Patient lethargic, non-verbal at this time. Qualifiers: Coma depth: unspecified coma depth Qualified Code(s): R40.20 - Unspecified coma (2) COPD (chronic obstructive pulmonary disease) Current Visit: No Status: Acute Assessment and plan: Patient breathing comfortable with mouth open, deep respirations. Patient currently on oxygen. Qualifiers: Emphysema type: unspecified Qualified Code(s): J43.9 - Emphysema, unspecified (3) Goals of care, counseling/discussion Current Visit: No Status: Acute Assessment and plan: Unable to have goals of care discussion. Plan to speak with Sister(Akua) today. Patient expected to pass within the next few days. (4) Cancer associated pain Current Visit: No Status: Acute Assessment and plan: No current s/sx of pain. One dose of oxycodone this morning given in the last 24 hours. Pt has not used Fentanyl in the last 24 hours, but it is available. (5) Anxiety Current Visit: No Status: Acute Assessment and plan: Patient given one dose of ativan in the last 24 hours. Patient has not recieved haldol but is available for use. - Time Spent With Patient Total time spent is greater than 50% in coordination of care (as documented) at patient's floor/unit and/or counseling patient: less than 15 minutes - Subjective Interval history: Pt breathing deep, regular with mouth open. He is non-verbal at this time and resting comfortably. Patient without s/sx of pain or anxiety at this time. - Constitutional General appearance: Present: mild distress, thin. Absent: cooperative, obese - Head Head exam: Present: atraumatic, normal inspection - Eye Eye exam: Present: PERRL Pupils: Present: normal accommodation, PERRL - ENT ENT exam: Present: mucous membranes dry - Expanded ENT Exam Mouth exam: Absent: drooling Teeth exam: Present: dental caries - Respiratory Respiratory exam: Present: accessory muscle use, wheezes, tachypnea Additional comments: Left lower lobe - Cardiovascular Cardiovascular exam: Present: RRR, +S1, +S2 - Expanded Cardiovascular Exam Peripheral pulses: 1+: Radial (L), Radial (R), Posterior Tibialis (L), Posterior Tibialis (R), Dorsalis Pedis (L) PM, Dorsalis Pedis (R) PM - GI/Abdominal GI/Abdominal exam: Present: normal bowel sounds, soft. Absent: tenderness Additional comments: Flat, cachetic - Rectal Rectal exam: Present: deferred - Additional comments: depends in place - Extremities Exam Extremities exam: Present: normal inspection. Absent: pedal edema - Expanded Upper Extremity Exam Vascular: Present: pallor - Neurological Exam Neurological exam: Present: altered. Absent: alert, oriented X3 Additional comments: nonverbal - Expanded Neurological Exam Patient oriented to: Absent: person, place, time Coma Scale Eye Opening: To Pain Coma Scale Motor Response: Withdraws to Pain Coma Scale Verbal Response: None Coma Scale Total: 7 - Psychiatric Psychiatric exam: Present: flat affect. Absent: agitated, anxious, normal affect, normal mood - Skin Skin exam: Present: dry (tenting present to clavicle), pallor - Expanded Skin Exam Type of lesion: Present: abrasion (Right jackson scab) Palliative Quality Palliative Quality: Screen for Code Status: Yes, Screen for Goals of Care: Yes, Screen for Pain: Yes, If Pain Regimen Started, Initiate Bowel Regimen: Yes, Screen for Nausea/Vomitting: Yes Code Status: 05/10/18 13:28 Resuscitation Status: Active [RES] Routine Comment: Resuscitation Status: DNR-Comfort Care Palliative Scale - Palliative Performance Scale How ambulatory is this patient?: Totally bed bound What is patient's level of activity and evidence of disease?: Unable to do most activity, Extensive disease How much self-care assistance does patient require?: Total care How much oral intake does the patient have?: Minimal to sips What is this patient's level of consciousness?: Drowsy or coma with or without confusion Palliative Performance Score: 20 % Consult Discharge Plan - Plan Referrals: NONE,PCP [Primary Care Provider] -
[2018-05-11] MEDS ORDERED: OXYCODONE Oral CONC 10 MG/0.5 ML ORAL.SYG SL PRN (11:30)
[2018-05-11] MEDS: OXYCODONE Oral CONC 10 MG/0.5 ML ORAL.SYG SL SCH ×3 (11:32→23:15)
[2018-05-11] MEDS ORDERED: Acetaminophen 650 MG RECTAL SUPP RC PRN (20:34)
[2018-05-12] MEDS: OXYCODONE Oral CONC 10 MG/0.5 ML ORAL.SYG SL SCH ×2 (05:50→12:31)
[2018-05-12 07:43] VITALS: BP 93/62
[2018-05-12] MEDS ORDERED: Scopolamine Patch 1.5 MG PATCH.TD72 TD SCH (11:00)
--- NOTE | 2018-05-12 12:27 | Palliative Progress Note ---
Date of Encounter: 05/12/18 Time of Encounter: 10:00 - Assessment and plan (1) Altered mental status, unspecified Current Visit: No Status: Acute Assessment and plan: Patient has been lethargic and nonverbal. No s/s of anxiety or agitation at this time. Qualifiers: Coma depth: unspecified coma depth Qualified Code(s): R40.20 - Unspecified coma (2) COPD (chronic obstructive pulmonary disease) Current Visit: No Status: Acute Assessment and plan: Patient utilizing accessory muscles for breathing. Oxygen saturaiton stable, 96% on 3L NC. Qualifiers: Emphysema type: unspecified Qualified Code(s): J43.9 - Emphysema, un specified (3) Goals of care, counseling/discussion Current Visit: No Status: Acute Assessment and plan: Met with patient's brother at bedside. Patient's mother is probably coming to see at bedside. Educated on s/s of and dying. Explained may not make it out of this facility. Educated on medications being utilized for comfort; verbalized understanding. Reports he is staying in close contact with their sister. (4) Cancer associated pain Current Visit: No Status: Acute Assessment and plan: Patient receiving Oxycodone as scheduled, has required 0 doses for breakthrough pain, tolerated well. (5) Anxiety Current Visit: No Status: Acute Assessment and plan: Patient displaying no signs of anxiety during assessment. Patient has received 2 doses of PRN Ativan in the last 24 hours, continue PRN. - Time Spent With Patient Total time spent is greater than 50% in coordination of care (as documented) at patient's floor/unit and/or counseling patient: less than 15 minutes - Subjective Interval history: Patient resting in bed with eyes closed upon arrival for assessment. Made no reaction to tactile or verbal stimulation. Patient's brother present at bedside. Reports patient has appeared comfortable. Patient being shaved by primary RN upon arrival for assessment. Patient's brother reports his sister is informing their mother today of patient's clinical status, wondering if would be ok if she came to see if she so desired; educated if she wants to come now would be the time. Concern presented for increased sounds of oral secretions. Educated of medication options for treatment; verbalized understanding. - Constitutional General appearance: Present: no acute distress, thin - Head Head exam: Present: atraumatic, normal inspection - Eye Eye exam: Absent: PERRL Pupils: Present: fixed. Absent: PERRL - ENT ENT exam: Present: mucous membranes dry, normal external ear exam - Neck Neck exam: Present: normal inspection - Respiratory Respiratory exam: Present: accessory muscle use, rhonchi, wheezes. Absent: respiratory distress - Cardiovascular Cardiovascular exam: Present: +S1, +S2 - GI/Abdominal GI/Abdominal exam: Present: hypoactive bowel sounds, soft. Absent: tenderness - Rectal Rectal exam: Present: deferred - Extremities Exam Extremities exam: Present: pedal edema (1+). Absent: tenderness - Back Exam Back exam: Present: normal inspection - Neurological Exam Neurological exam: Present: altered. Absent: alert, oriented X3, reflexes normal, strengths equal and symetr throughout - Psychiatric Psychiatric exam: Present: flat affect - Skin Skin exam: Present: dry, intact, pallor, warm. Absent: mottled Palliative Quality Palliative Quality: Screen for Code Status: Yes, Screen for Goals of Care: Yes, Screen for Pain: Yes, If Pain Regimen Started, Initiate Bowel Regimen: Yes, Screen for Nausea/Vomitting: Yes Code Status: 05/10/18 13:28 Resuscitation Status: Active [RES] Routine Comment: Resuscitation Status: DNR-Comfort Care Palliative Scale - Palliative Performance Scale How ambulatory is this patient?: Totally bed bound What is patient's level of activity and evidence of disease?: Unable to do most activity, Extensive disease How much self-care assistance does patient require?: Total care How much oral intake does the patient have?: Minimal to sips What is this patient's level of consciousness?: Drowsy or coma with or without confusion Palliative Performance Score: 20 % Consult Discharge Plan - Plan Referrals: NONE,PCP [Primary Care Provider] - (GIP)
--- NOTE | 2018-05-13 09:32 | Death Note ---
Discharge Sum: Summary - Date and Time Date of admission: 05/10/18 17:53 Date of : 05/12/18 Time of : 14:51 - Summary Details: Mr. Urena arrived to [place] as a Transfer from [facility] for g eneralized weakness, abdominal pain and 10 pound weight loss. PMH: nonischemic cardiomyopathy, COPD, hypertension and ICD. While at [facility] patient diagnosed with large left hilar mass, lung cancer with concern for metastatic disease to liver and retroperitoneal lymphadenopathy. Patient had overall decline over last several months. Palliative care consulted for goals of care. Met with patient's sister whom assisted in transition to hospice care, as patient having severe back pain, restlessness and agitation. Patient also not a candidate for chemotherapy for cancer treatment, nor would want aggressive testing/life prolonging measures. During patient's admission into [facility], patient suffered increased pain, oral secretions, and agitation. Patient assisted with symptom management via pain, anxiety, and secretion drying agents. Patient made comfortable. Notified of patient's passing 05/12/18 @ 1515. Family reported to be at bedside. Hospice was requested to be notified. - Additional Data Confirmation of as documented by pronouncing clinician: no pulse, no respirations, no heart sounds, pupils fixed and dilated Family: at bedside Attending/PCP notified?: No Attending physician: Pauline Simms MD Was code activated?: No Autopsy requested?: No financial compliance examiner notified?: No Organ bank notified?: Yes Advance directives: No Hospice patient?: Yes Discharge Sum: Diag - PCOD Probable Cause of : Respiratory arrest Discharge Sum: Prov - Provider Primary care physician: PCP NONE Admitting clinician: Pauline Simms Attending physician on admission: Pauline Simms Consults: 05/10/18 13:28 Consult to Palliative Care [CONS] Routine Comment: Consulting Provider: Palliative Care Lizzie Reason for Consult: [facility] Call Completed: No
== END 2018-05-12 14:51 | disposition expired | DRG 951 ==
LOC: 2NNU 17:53 → 2ANU 21:56
PROVIDERS: ADMIT Internal Medicine Hospice and Palliative Medicine; ATTEND Internal Medicine Hospice and Palliative Medicine